=== PATIENT | female | born 1985 | race American Indian/Alaskan Native ===

== ENCOUNTER 2017-11-11 09:27 | Emergency (ER) | payer MEDICAID ==
[2017-11-11 11:45] LABS: Bilirubin,Urine NEG (Negative); Blood,Urine MOD (Negative); Color,Urine Yellow (Yellow); Mucus,Urine FEW /HPF; Nitrite,Urine NEG (Negative); Protein,Urine <15 mg/dL mg/dL (Negative)
[2017-11-11 11:46] LABS: HCG Qualitative,Urine Negative (Negative)
[2017-11-11] MEDS ORDERED: TORADOL IV ONE (14:05)
[2017-11-11] MEDS ORDERED: TESSALON PERLES PO ONE (14:05)
[2017-11-11] MEDS ORDERED: NACL 0.9% 1000 ML 1,000 ML IV ONE (14:05)
--- NOTE | 2017-11-11 14:16 | Emergency Department Report ---
HPI - General Chief Complaint: Chest Pain Time Seen by Provider: 11/11/17 13:58 - HPI HPI: Room 38 The patient is a 32-year-old female presenting with chief complaint of shortness of breath and cough. The patient states her symptoms began yesterday with a cough that has been nonproductive. Patient denies any history of rhinorrhea. Complains of diffuse body aches and shortness of breath. The patient states she has not had any sick contacts. The patient noted fever at home of 101F. The patient states she took Tylenol and Robitussin prior to coming to the emergency department Location: Lungs, muscles Duration: Onset yesterday Quality: Aches Severity: Moderate Modifying factors: [see above] Context: [see above] Mode of transportation: [not driving] ED Past Medical Hx - Past Medical History Previous Medical History?: No Additional medical history: Bronchitis - Surgical History Past Surgical History?: No - Family History Family history: no significant - Social History Smoking Status: Former Smoker (none 3 years) Substance Use Type: None (denies illicit drug use) - Medications Home Medications: Home Medications Medication Instructions Recorded Confirmed Last Taken Type ALBUTEROL Inhaler [Proair] 2 puff IH QID PRN #1 inhalation 11/11/17 Unknown Rx Azithromycin [Zithromax Z-YISSEL] 0 mg PO DAILY #6 tab 11/11/17 Unknown Rx Cyclobenzaprine [Flexeril] 10 mg PO TID PRN #14 tablet 11/11/17 Unknown Rx Ibuprofen [Motrin 800 MG tab] 800 mg PO Q8HR PRN #20 tablet 11/11/17 Unknown Rx Promethazine HCl/Codeine 5 ml PO Q4-6H PRN #200 ml 11/11/17 Unknown Rx [Promethazine-Codeine Syrup] ED Review of Systems ROS: Stated complaint: CHEST PAIN, FEVER Other details as noted in HPI Constitutional: fever ENT: denies: other (no rhinorrhea) Respiratory: cough, shortness of breath Musculoskeletal: myalgia Physical Exam - Physical Exam Vital Signs: Vital Signs 11/11/17 09:37 Temperature 99.5 F Pulse Rate 109 H Respiratory 20 Rate Blood Pressure 134/78 O2 Sat by Pulse 96 Oximetry Physical Exam: GENERAL: The patient is well-developed well-nourished female sitting in chair appearing to be in mild discomfort HEENT: Normocephalic. Atraumatic. Extraocular motions are intact. Patient has moist mucous membranes. NECK: Supple. Trachea midline CHEST/LUNGS: Clear to auscultation. There is no respiratory distress noted. Occasional cough HEART/CARDIOVASCULAR: Regular. There is tachycardia. There is no gallop rub or murmur. ABDOMEN: Abdomen is soft, nontender. Patient has normal bowel sounds. There is no abdominal distention. SKIN: There is no rash. There is no edema. There is no diaphoresis. NEURO: The patient is awake, alert, and oriented. The patient is cooperative. The patient has normal speech MUSCULOSKELETAL: There is no evidence of acute injury. ED Course Vital Signs 11/11/17 09:37 Temperature 99.5 F Pulse Rate 109 H Respiratory 20 Rate Blood Pressure 134/78 O2 Sat by Pulse 96 Oximetry - Reevaluation(s) Reevaluation #1: 11/11/17 16:03 Patient says she feels comfortable enough to go home. Patient's tachycardia improved after IV fluids. Minimal tachycardia persists A secondary to nebulizers. Patient given strong warnings to return should her condition worsen or she notice other symptoms ED Medical Decision Making - Lab Data Laboratory Tests 11/11/17 10:45 Urine Color Yellow Urine Turbidity Clear Urine pH 6.0 Ur Specific [place] 1.024 Urine Protein <15 mg/dl Urine Glucose (UA) Neg Urine Ketones Neg Urine Blood Mod Urine Nitrite Neg Urine Bilirubin Neg Urine Urobilinogen 2.0 Ur Leukocyte Esterase Neg Urine WBC (Auto) 1.0 Urine RBC (Auto) 29.0 U Epithel Cells (Auto) 1.0 Urine Mucus Few Urine HCG, Qual Negative Influenza negative - Radiology Data Radiology results: report reviewed (chest x-ray), image reviewed (chest x-ray) interpreted by me: Chest x-ray-no focal infiltrates, no pneumothorax AP CHEST: HISTORY: chest pain AP view of the chest demonstrates a normal mediastinal and cardiac contour with clear lungs and normal bony and soft tissue structures. IMPRESSION: Unremarkable AP chest. Transcribed By: TTR Dictated By: GHISLAINE HARRIS JR, MD Electronically Authenticated By: GHISLAINE HARRIS JR, MD Signed Date/Time: 11/11/171434 DD/ 34 TD/TT: 11/11/171434 - Differential Diagnosis influenza, pneumonia, bronchitis Critical care attestation.: If time is entered above; I have spent that time in minutes in the direct care of this critically ill patient, excluding procedure time. ED Disposition Clinical Impression: Acute bronchitis Disposition: - TO HOME OR SELFCARE Is pt being admited?: No Does the pt Need Aspirin: No Condition: Stable Instructions: Acute Bronchitis (ED) Additional Instructions: Return to the emergency department immediately should you develop worsening symptoms, fever, inability to tolerate food or liquid or any other concerns. Prescriptions: ALBUTEROL Inhaler [Proair] 2 puff IH QID PRN #1 inhalation PRN Reason: Shortness Of Breath Azithromycin [Zithromax Z-YISSEL] 0 mg PO DAILY #6 tab Cyclobenzaprine [Flexeril] 10 mg PO TID PRN #14 tablet PRN Reason: Muscle Spasm Ibuprofen [Motrin 800 MG tab] 800 mg PO Q8HR PRN #20 tablet PRN Reason: Pain Promethazine HCl/Codeine [Promethazine-Codeine Syrup] 5 ml PO Q4-6H PRN #200 ml PRN Reason: Cough Referrals: PRIMARY CARE, [Primary Care Provider] - 3-5 Days RUBEN TRINIDAD MD [Staff Physician] - 3-5 Days (Dr. Trinidad is a primary physician. Please follow-up with him to be established as a patient) Time of Disposition: 16:03
[2017-11-11] MEDS ORDERED: ATROVENT IH ONE (14:17)
[2017-11-11] MEDS ORDERED: XOPENEX IH ONE ×2 (14:37→14:39)
--- NOTE | 2017-11-11 14:41 | XRay Report ---
AP CHEST: HISTORY: chest pain AP view of the chest demonstrates a normal mediastinal and cardiac contour with clear lungs and normal bony and soft tissue structures. IMPRESSION: Unremarkable AP chest.
[2017-11-11 15:56] VITALS: BP 109/65
== END 2017-11-11 16:14 | disposition home or self-care (01) ==
LOC: ED 09:27
DX: J20.9 Acute bronchitis, unspecified (principal)
CPT/HCPCS: 71045; 81001; 81025; 87400; 93005; 93010; 94640; 96361; 96374; 99284; J1885; J7030